=== PATIENT | female | born 1950 | race Caucasian/White ===

== ENCOUNTER 2016-11-09 07:44 | Day surgery (SDC) | payer MEDICARE, OTHER ==
[2016-11-09] MEDS ORDERED: ONDANSETRON HCL/PF 2 MG/ML VIAL ONE (08:13)
[2016-11-09] MEDS ORDERED: MORPHINE SULFATE 4 MG/ML SYRG ONE ×2 (08:13→08:50)
[2016-11-09] MEDS ORDERED: MORPHINE SULFATE 4 MG/ML SYRG IV ONE ×2 (08:17→08:53)
[2016-11-09] MEDS ORDERED: ONDANSETRON HCL/PF 2 MG/ML VIAL IV ONE (08:17)
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
[2016-11-09] MEDS ORDERED: RINGERS SOLUTION,LACTATED 1,000 ML IV ONE ×2 (10:30→11:19)
--- NOTE | 2016-11-09 11:45 | OR ---
Operative Report - Dictated Report Narrative: Date: 11/09/2016 Physician: Kenneth Gómez M.D. Market Development Executive: Syed Ya PA-C Preoperative diagnosis: Right proximal humerus fracture/dislocation Postoperative diagnosis: Right proximal humerus fracture/dislocation Procedure: Attempted closed reduction of right proximal humerus fracture/ dislocation Anesthesia: General Complications: None Estimated blood loss: None Specimens: None Indications: Esther Is a 66 year-old female who sustained a right proximal humerus fracture/ dislocation after tripping over her dog at home. She was initially brought to the [facility] ER where plain films revealed a fracture dislocation of the right proximal humerus. We counseled her on the need to attempt a closed reduction followed by fixation of her fracture at a later date. The risks, benefits, and alternatives were discussed in the ER. The risks being , bleeding, infection, blood clots, nerve, tendon, ligament, blood vessel injury, persistent pain, arthrosis, stiffness, need for prolonged therapy, need for additional procedures, and persistent symptoms. Consent was obtained in the ER. Procedure: After marking the correct extremity in the preoperative holding area, a timeout was performed in the operating room. General anesthesia was induced by the anesthesia provider on the ER cart and the patient was then transferred over to the operating table in the supine position with all bony prominences well- padded. Once good relaxation was obtained gentle longitudinal traction was held on the right arm. The arm was abducted and slightly externally rotated and gentle manipulation was used to attempt to reduce the femoral shaft and head back onto the glenoid. A shift was felt and we checked our fluoroscopy image and found that the shaft had been reduced however the humeral head remained in a dislocated anterior inferior position. Numerous attempts with manipulation were undertaken to try and reduce the humeral head however it was determined that this would not be possible by closed means. At this point the patient was awoken and transferred to the postanesthesia care unit in stable condition Plan: The patient will be taken back to the emergency department with a plan for transfer up to the [facility] emergency department for further evaluation and treatment by the orthopedic surgeons there.
[2016-11-09 12:03] VITALS: BP 116/61
== END 2016-11-09 10:05 | disposition home or self-care (01) ==
LOC: ER 07:44 → AMB 10:04
PROVIDERS: ATTEND Orthopaedic Surgery
PROC: 0PSFXZZ Reposition Right Humeral Shaft, External Approach (ICD-10-PCS; principal; 2016-11-09 08:45)
DX: S42.391A Other fracture of shaft of right humerus, initial encounter for closed fracture (principal); S43.014A Anterior dislocation of right humerus, initial encounter; F41.9 Anxiety disorder, unspecified; Z72.0 Tobacco use; W19.XXXA Unspecified fall, initial encounter